=== PATIENT | female | born 1990 | race Caucasian/White ===

== ENCOUNTER 2016-10-01 17:40 | Emergency (ER) | payer MEDICAID ==
--- NOTE | 2016-10-06 14:44 | ER ---
ADMIT: 10/01/2016 RM/LOC: ER [facility] MR#: [id number] [address] [id number] KYLE CARTER [address] [address] Emergency Room Report SEX: F AGE: 26 : 1990 DATE: 10/01/2016 ADDENDUM: CHIEF COMPLAINT: Headache. HISTORY OF PRESENT ILLNESS: This is a 26-year-old who slipped in the shower and hit his head. He does have a small area of swelling and ecchymosis. We discussed doing a head CT versus not doing a head CT. There is no confusion. No vomiting, but he is slightly nauseated. He is going to have family members watch him tonight. He is okay with not doing a head CT at this time. He will return to the ER if any mental status changes, repetitive vomiting, or intolerable headache. CLINICAL IMPRESSION: Head contusion. RENE Robertson / Greg Bunch MD / олегl JOB #: [id number] CC: Greg Bunch MD, Attending Physician Benny Valera MD, Family Physician
== END 2016-10-01 18:44 | disposition home or self-care (01) ==
LOC: ER 17:40 → EDSEX 17:40 → ER 18:44
DX: S00.83XA Contusion of other part of head, initial encounter (principal); F17.210 Nicotine dependence, cigarettes, uncomplicated; Z79.899 Other long term (current) drug therapy; Z88.2 Allergy status to sulfonamides; Z90.89 Acquired absence of other organs; W18.09XA Striking against other object with subsequent fall, initial encounter

== ENCOUNTER 2016-10-01 20:29 | Emergency (ER) | payer MEDICAID | END 2016-10-01 20:46 | disposition left against medical advice (07) | LOC: ER 20:29 | DX: Z53.21 Procedure and treatment not carried out due to patient leaving prior to being seen by health care provider (principal) ==